=== PATIENT | male | born 1950 | race Caucasian/White ===

== ENCOUNTER → 2017-11-14 | Outpatient (CLI) | payer BC ==
[~2017-11-14] VITALS: Ht 180.3 cm; Wt 86.2 kg
[~2017-11-14] MED LIST: CATHETER FLUSH 10 ML SYR IV PRN; TEST5GEL6 TD
[2017-11-14 07:54] VITALS: BP 123/71
[2017-11-14 08:10] VITALS: BP 152/77
[2017-11-14 08:22] VITALS: BP 185/57
--- NOTE | 2017-11-14 14:17 | STRESS TEST ---
DATE OF SERVICE: 11/14/2017 NUCLEAR MYOVIEW REPORT REFERRING PHYSICIAN: Dr. Burk. In summary, the patient was injected with 10.63 mCi of technetium-99 Myoview and the resting images were obtained with peak stress level at 30.8 mCi of technetium-99 Myoview were injected and the stress images were obtained. The resting and stress images were compared and reviewed in the short axis, horizontal long axis, and vertical long axis views. Review of the images showed diaphragmatic attenuation with typical male pattern, mild decreased uptake at the inferior wall with no significant reversibility. SSS is 0. TID value of 0.99. On the gated images, the left ventricle appeared to be in normal size with normal contractility, calculated ejection fraction 67%. CONCLUSION: 1. No ischemia or infarction on SPECT images. 2. Normal left ventricular size with normal contractility. Calculated ejection fraction 67%. Job ID: [id number] DocumentID: [id number] Dictated Date: 11/14/2017 11:31:54 Grazing Examiner Date: 11/14/2017 14:16:49 Dictated By: JOSE CARUSO MD
== END ==
LOC: CARD 06:44
PROVIDERS: ATTEND Internal Medicine
DX: I25.10 Atherosclerotic heart disease of native coronary artery without angina pectoris (principal); I51.9 Heart disease, unspecified
CPT/HCPCS: 78452; 93017

== ENCOUNTER → 2020-07-02 | Outpatient (CLI) | payer MEDICARE ==
[~2020-07-02] MED LIST changes: -CATHETER FLUSH 10 ML SYR IV PRN; +GADOBUTROL 10 MMOL/10 ML (GADAVIST) VIAL IV ONE
--- NOTE | 2020-07-02 12:26 | Diagnostic Imaging Report ---
CLINICAL INDICATION: Patient with left-sided hearing loss and left tinnitus x2 months. EXAM: MRI of the brain/ IACs performed without and with 8 cc of Gadavist IV contrast. Sequences include sagittal T1 localizer, axial T2, axial flair, axial T1, coronal gradient echo, DWI, ADC map, axial T1 thin, axial T2 thin, coronal T1 thin, axial T2 3D FIESTA, axial T1 post contrast whole brain, coronal T1 fat-sat post IV contrast whole brain, and sagittal T1 post IV contrast whole brain. COMPARISONS: None. FINDINGS: TEMPORAL BONE STRUCTURES: Unremarkable. The internal auditory canal, otic capsule, middle ear, and temporal bone structures have normal anatomic appearance and are unremarkable. There is no abnormal fluid in the mastoid air cells seen. The visualized nerves VII and VIII within the IACs bilaterally and cisternal portions have normal appearance. CISTERNAL STRUCTURES: There is no cisternal mass seen. The remainder of the visualized cranial nerves in the basal cistern regions are unremarkable. BRAIN PARENCHYMA: There are multiple focal areas of high T2 signal white matter changes involving both cerebral hemispheres, likely representing chronic small vessel ischemic disease. There is brain parenchymal volume loss. There is normal diaz-white matter distention. There is no significant architectural distortion, midline shift, or herniation. There is no abnormal IV contrast enhancement or diffusion restriction signal changes. VENTRICLES: Unremarkable with no hydrocephalus. VISUALIZED INTRACRANIAL VESSELS: Unremarkable as visualized. SKULL/ ORBITS: Unremarkable. VISUALIZED PARANASAL SINUSES: There is minimal mucosal thickening involving ethmoid sinus. IMPRESSION: 1: Unremarkable MRI of the internal auditory canals, temporal bone structures, and basal cisterns. 2: Age related brain parenchymal changes. 3: There is mild paranasal sinus disease. Dictated by: Dictated on workstation # [id number]
== END ==
LOC: RAD 10:03
PROVIDERS: ATTEND Otolaryngology Otolaryngology/Facial Plastic Surgery
DX: H91.8X2 Other specified hearing loss, left ear (principal); H93.12 Tinnitus, left ear; G31.1 Senile degeneration of brain, not elsewhere classified; J34.89 Other specified disorders of nose and nasal sinuses
CPT/HCPCS: 70553

== ENCOUNTER → 2022-07-22 | Outpatient (CLI) | payer MEDICARE ==
[~2022-07-22] MED LIST changes: -GADOBUTROL 10 MMOL/10 ML (GADAVIST) VIAL IV ONE
== END ==
LOC: CARD 09:12
PROVIDERS: ATTEND Internal Medicine
DX: R00.2 Palpitations (principal)
CPT/HCPCS: 93246

== ENCOUNTER → 2022-08-05 | Outpatient (CLI) | payer MEDICARE ==
[~2022-08-05] MED LIST changes: +APIX5TAB PO; +DILT180C67 PO
== END ==
LOC: CARD 08:30
PROVIDERS: ATTEND Internal Medicine
DX: I48.92 Unspecified atrial flutter (principal)
CPT/HCPCS: 93306

== ENCOUNTER 2022-08-06 22:46 | Emergency (ER) | payer MEDICARE ==
[~2022-08-06] VITALS: Ht 180.3 cm; Wt 84.8 kg
[~2022-08-06 22:46] MED LIST changes: -APIX5TAB PO; -CATHETER FLUSH 10 ML SYR IVP PRN; -DILT180C67 PO
[2022-08-06 23:07] LABS: BASOPHILS # (AUTO) 0.1 10^3/uL (0.0-0.1); BASOPHILS % (AUTO) 1 % (0-10); EOSINOPHILS # (AUTO) 0.2 10^3/uL (0.0-0.3); EOSINOPHILS % (AUTO) 2 % (0-10); HEMATOCRIT 42 % (40-54); HEMOGLOBIN 14.6 g/dL (13.3-17.7); LYMPHOCYTES # (AUTO) 2.3 10^3/uL (1.0-4.0); LYMPHOCYTES % (AUTO) 34 % (12-44); MEAN CORPUSCULAR HEMOGLOBIN 32 pg (25-34); MEAN CORPUSCULAR HGB CONC 35 g/dL (32-36); MEAN CORPUSCULAR VOLUME 94 fL (80-99); MEAN PLATELET VOLUME 9.3 fL (9.0-12.2); MONOCYTES # (AUTO) 0.8 10^3/uL (0.0-1.0); MONOCYTES % (AUTO) 11 % (0-12); NEUTROPHILS # (AUTO) 3.4 10^3/uL (1.8-7.8); NEUTROPHILS % (AUTO) 52 % (42-75); PLATELET COUNT 262 10^3/uL (130-400); WHITE BLOOD COUNT 6.7 10^3/uL (4.3-11.0)
[2022-08-06 23:15] LABS: INR 0.9 (0.8-1.4); PROTHROMBIN TIME PATIENT 12.9 SEC (12.2-14.7)
[2022-08-06] MEDS ORDERED: dilTIAZem DRIP PRE-MIX 125 ML IV SCH (23:15)
[2022-08-06] MEDS ORDERED: ENOXAPARIN 100 MG/1 ML (LOVENOX) SYR SC ONE (23:15)
--- NOTE | 2022-08-06 23:23 | ED Cardiac General ---
History of Present Illness General Chief Complaint: Cardiac/General Problems Stated Complaint: ELEVATED, ERRATIC HEART RATE Nursing Triage Note: PT AMB TO RM 6 W C/O RAPID HR AND SOA SX APPROX [phone] THIS PM. PT A&OX4. Source: patient History of Present Illness Date Seen by Provider: Aug 06, 2022 Time Seen by Provider: 22:52 Initial Comments PT ARRIVES VIA POV FROM HOME C/O RAPID AND IRREGULAR HEART BEAT SINCE AROUND [phone] TONIGHT, AND HAS CONTINUED ALL EVENING HAS SOME SHORTNESS OF BREATH WITH IT NO CHEST PAIN NO SWEATS NO DIZZINESS OR SYNCOPE NO SWELLING IN LEGS/FEET OR PAIN IN CALVES NO NAUSEA/VOMITING HE TRIED TO CHECK HIS PULSE AT HOME, BUT IT WAS TOO WEAK AND TOO FAST TO COUNT. THIS IS THE 4TH TIME THIS HAS HAPPENED IN THE LAST MONTH, AND IT HAS NEVER LASTED THIS LONG. HE HAS NOT HAD THIS PROBLEM, PRIOR TO A MONTH AGO. HE HAS SEEN DR. STEPHENS AND HAD OUTPATIENT STRESS TEST DONE TODAY BY DR. STEPHENS. RESULTS ARE NOT AVAILABLE AT THIS TIME. HE HAD A [facility] EVENT MONITOR FROM 07/22-07/28/22--SHOWED 2 RUNS OF ATRIAL FIBRILLATION, WITH MAX BPM OF 171, WITH SOME UNIFOCAL PVC'S, RARE COUPLETS AND TRIPLETS. HIS ONLY MEDICAL PROBLEM IS HYPERLIPIDEMIA HE DOES NOT SMOKE HE DOES DRINK ALCOHOL ON A REGULAR BASIS--"EVERY OTHER DAY" DENIES DRUG USE Allergies and Home Medications Allergies Coded Allergies: No Known Drug Allergies (Unverified , 02/01/11) Patient Home Medication List Home Medication List Reviewed: Yes Apixaban (Eliquis) 5 Mg Tablet, 5 MG PO BID Prescribed by: GHASSAN ADAME on 08/07/2211 Diltiazem HCl (Cardizem Cd) 180 Mg Cap.er.24h, 180 MG PO DAILY Prescribed by: GHASSAN ADAME on 08/07/2211 Testosterone (Testim) 5 Gm Gel..gm., 1 PATCH TD DAILY, (Reported) Entered as Reported by: IBAN CEDILLO on 02/01/11 0252 Review of Systems Review of Systems Constitutional: no symptoms reported; No diaphoresis, No dizziness, No malaise, No weakness EENTM: No Symptoms Reported Respiratory: See HPI, Shortness of Air Cardiovascular: See HPI; Denies Chest Pain, Denies Edema; Irregular Heart Rate; Denies Lightheadedness; Palpitations; Denies Syncope Gastrointestinal: No Symptoms Reported; Denies Abdominal Pain, Denies Nausea, D enies Vomiting Genitourinary: No Symptoms Reported Musculoskeletal: no symptoms reported Skin: no symptoms reported Psychiatric/Neurological: No Symptoms Reported Endocrine: No Symptoms Reported Hematologic/Lymphatic: No Symptoms Reported Past Kcppqxo-Pxewpy-Gldvjp Hx Patient Social History Tobacco Use?: No Use of E-Cig and/or Vaping dev: No Substance use?: No Alcohol Use?: Yes ("EVERY OTHER DAY") Alcohol type: Beer, Hard Liquor Alcohol Frequency: Couple times a week Immunizations Up To Date Influenza Vaccine Up-to-Date: Yes; Up-to-Date First/Initial COVID19 Vaccinat: 2020 Second COVID19 Vaccination Arpit: 2020 Third COVID19 Vaccination Date: 2021 COVID19 Vaccine Broker: [id number] Past Medical History Surgeries: No Respiratory: No Cardiac: Yes High Cholesterol Neurological: No Genitourinary: No Gastrointestinal: No Musculoskeletal: No Endocrine: No HEENT: No Cancer: No Psychosocial: No Integumentary: No Blood Disorders: No Physical Exam Vital Signs Vital Signs - First Documented 08/06/22 22:50 Temp 36.5 Pulse 92 Resp 20 B/P (MAP) 168/99 (122) Pulse Ox 98 O2 Delivery Room Air Capillary Refill : Less Than 3 Seconds Height, Weight, BMI Height: 5'11.00" Weight: 190lbs. 0.0oz. 86.512469qm; 26.00 BMI Method:Stated General Appearance: No Apparent Distress, WD/WN Neck: Normal Inspection; No Carotid Bruit, No JVD Respiratory: Normal Breath Sounds, No Accessory Muscle Use, No Respiratory Distress Cardiovascular: No Edema, No JVD, No Murmur, Normal Peripheral Pulses, Irregularly Irregular Gastrointestinal: Non Tender, Soft Extremity: Normal Capillary Refill, Normal Inspection, Normal Range of Motion, Non Tender, No Calf Tenderness, No Pedal Edema Neurologic/Psychiatric: Alert, Oriented x3, No Motor/Sensory Deficits, Normal Mood/Affect, scrubber operator II-XII Norm as Tested Skin: Normal Color, Warm/Dry Progress/Results/Core Measures Results/Orders Lab Results Laboratory Tests Test 08/06/22 22:57 Range/Units White Blood Count 6.7 4.3-11.0 10^3/uL Red Blood Count 4.52 4.30-5.52 10^6/uL Hemoglobin 14.6 13.3-17.7 g/dL Hematocrit 42 40-54 % Mean Corpuscular Volume 94 80-99 fL Mean Corpuscular Hemoglobin 32 25-34 pg Mean Corpuscular Hemoglobin Concent 35 32-36 g/dL Red Cell Distribution Width 12.7 10.0-14.5 % Platelet Count 262 130-400 10^3/uL Mean Platelet Volume 9.3 9.0-12.2 fL Immature Granulocyte % (Auto) 0 % Neutrophils (%) (Auto) 52 42-75 % Lymphocytes (%) (Auto) 34 12-44 % Monocytes (%) (Auto) 11 0-12 % Eosinophils (%) (Auto) 2 0-10 % Basophils (%) (Auto) 1 0-10 % Neutrophils # (Auto) 3.4 1.8-7.8 10^3/uL Lymphocytes # (Auto) 2.3 1.0-4.0 10^3/uL Monocytes # (Auto) 0.8 0.0-1.0 10^3/uL Eosinophils # (Auto) 0.2 0.0-0.3 10^3/uL Basophils # (Auto) 0.1 0.0-0.1 10^3/uL Immature Granulocyte # (Auto) 0.0 0.0-0.1 10^3/uL Prothrombin Time 12.9 12.2-14.7 SEC INR Comment 0.9 0.8-1.4 Activated Partial Thromboplast Time 35 24-35 SEC Sodium Level 139 135-145 MMOL/L Potassium Level 3.6 3.6-5.0 MMOL/L Chloride Level 105 98-107 MMOL/L Carbon Dioxide Level 23 21-32 MMOL/L Anion Gap 11 5-14 MMOL/L Blood Urea Nitrogen 21 H 7-18 MG/DL Creatinine 1.21 0.60-1.30 MG/DL Estimat Glomerular Filtration Rate 64 BUN/Creatinine Ratio 17 Glucose Level 114 H 70-105 MG/DL Calcium Level 9.5 8.5-10.1 MG/DL Corrected Calcium 9.1 8.5-10.1 MG/DL Magnesium Level 2.3 1.6-2.4 MG/DL Total Bilirubin 0.4 0.1-1.0 MG/DL Aspartate Amino Transf (AST/SGOT) 25 5-34 U/L Alanine Aminotransferase (ALT/SGPT) 25 0-55 U/L Alkaline Phosphatase 48 40-136 U/L Total Creatine Kinase 165 30-200 U/L Creatine Kinase MB 2.5 <6.6 NG/ML Troponin I < 0.028 <0.028 NG/ML B-Type Natriuretic Peptide 19.7 <100.0 PG/ML Total Protein 8.0 6.4-8.2 GM/DL Albumin 4.5 3.2-4.5 GM/DL TSH Rooks Testing 3.72 0.35-4.94 UIU/ML My Orders Orders - GHASSAN ADAME DO Ed Iv/Invasive Line Start (08/06/22 22:51) Ekg Tracing (08/06/22 22:51) O2 (08/06/22 22:51) Monitor-Rhythm Ecg Trace Only (08/06/22 22:51) Bnp Tootie (08/06/22 22:51) Cbc With Automated Diff (08/06/22 22:51) Comprehensive Metabolic Panel (08/06/22 22:51) Creatine Kinase (08/06/22 22:51) Creatine Kinase Mb (08/06/22 22:51) Magnesium (08/06/22 22:51) Protime With Inr (08/06/22 22:51) Partial Thromboplastin Time (08/06/22 22:51) Thyroid Analyzer (08/06/22 22:51) Troponin I Tootie (08/06/22 22:51) Chest 1 View, Ap/Pa Only (08/06/22 22:51) Enoxaparin Injection (Lovenox Injection) (08/06/22 23:15) Diltiazem Injection (Cardizem Injection) (08/06/22 23:15) Diltiazem Drip Pre-Mix (Cardizem Drip Pr (08/06/22 23:15) Aspirin Chewable Tablet (Baby Aspirin Ch (08/06/22 23:30) Diltiazem Cd 24 Hr Capsule (Cardizem Cd (08/07/22 00:15) Medications Given in ED Current Medications Medications Dose Ordered Sig/Eh Route Start Time Stop Time Status Last Admin Dose Admin Aspirin 324 mg ONCE ONCE PO 08/06/22 23:30 08/06/22 23:31 DC 08/06/22 23:37 324 MG Diltiazem HCl 20 mg ONCE ONCE IVP 08/06/22 23:15 08/06/22 23:16 DC 08/06/22 23:26 10 MG Enoxaparin Sodium 90 mg ONCE ONCE SC 08/06/22 23:15 08/06/22 23:16 DC 08/06/22 23:21 90 MG Vital Signs/I&O 08/06/22 08/06/22 08/06/22 08/06/22 22:50 23:21 23:26 23:26 Temp 36.5 Pulse 92 98 81 81 Resp 20 B/P (MAP) 168/99 (122) 125/88 135/83 135/83 Pulse Ox 98 O2 Delivery Room Air 08/06/22 23:34 Pulse 72 B/P (MAP) 117/83 Blood Pressure Mean: 122 Progress Progress Note : Progress Note PT NOTED TO BE IN ATRIAL FIBRILLATION , WITH RATE IN UPPER 90'S BP IS 168/99 ON ARRIVAL. O2 SAT 98% ON ROOM AIR PT WAS GIVEN: -CARDIZEM BOLUS AND DRIP -ASPIRIN -LOVENOX HEART RATE DOWN TO 70'S, BP DOWN TO 110'S SYSTOLIC PT IS ASYMTOMATIC FOR REMAINDER OF ER STAY. REVIEWED RECENT OUTPATIENT TESTS PT HAS NOT HAD ANY PRIOR ADMITS, AND ONLY 1 ER VISIT IN 2010 FOR UNRELATED PROBLEM. DISCUSSED TEST RESULTS, AND POSSIBLE NEED FOR ADMIT. PT WOULD LIKE TO GO HOME IF POSSIBLE. PT DOES LIVE ALONE. AFTER CONSULTING DR. BILLY, HE IS AGREEABLE WITH PT GOING HOME ON ORAL MEDICATION, AND REVIEWED ALL THIS WITH PT, AND HE FEELS COMFORTABLE GOING HOME. DISCUSSED IMPORTANCE OF FOLLOW UP, DRIVING RESTRICTIONS, MEDICATIONS, AND RETURN PRECAUTIONS. Initial ECG Impression Date: Aug 06, 2022 Initial ECG Impression Time: 23:00 Initial ECG Rate: 95 Initial ECG Rhythm: A Fib/Flutter Initial ECG Impression: Nonspecific Changes, Atrial Fibrillation Initial ECG Comparisson: No Previous ECG Available Comment INTERPRETED BY ME Diagnostic Imaging Comments CXR--NO ACUTE PROCESS, PENDING RADIOLOGIST REVIEW Reviewed: Reviewed by Me Departure Communication (Admissions) 0723--SPOKE WITH DR. BILLY, PHOTOGRAPH TINTER. HE STATES THAT PT MAY GO HOME, WILL START HIM ON ELIQUIS AND CARDIZEM, AND HE WILL SEE PT IN OFFICE ON TUESDAY. Impression Primary Impression: New onset atrial fibrillation Additional Impression: Atrial fibrillation with RVR Disposition: HOME, SELF-CARE Condition: Stable Departure-Patient Inst. Decision time for Depature: 00:08 Referrals: AYAAN BILLY MD FACP [facility] HARDY STEPHENS DO (PCP/Family) Primary Care Physician Patient Instructions: Atrial Fibrillation (DC), Going Home on Blood Thinners Add. Discharge Instructions: HOME, REST NO CAFFEINE OR ENERGY DRINKS NO ALCOHOL DO NOT DRIVE IF YOU ARE HAVING ANY SYMPTOMS OF IRREGULAR HEART BEAT, SHORT OF BREATH, DIZZY, CHEST PAIN, ETC. FOLLOW UP WITH DR. BILLY, PHOTOGRAPH TINTER, ON TUESDAY RETURN TO ER IF YOUR SYMPTOMS WORSEN. All discharge instructions reviewed with patient and/or family. Voiced understanding. Scripts Diltiazem HCl (Cardizem Cd) 180 Mg Cap.er.24h 180 MG PO DAILY, #30 CAP Prov: GHASSAN ADAME DO 08/07/22 Apixaban (Eliquis) 5 Mg Tablet 5 MG PO BID, #60 TAB Prov: GHASSAN ADAME DO 08/07/22 GHASSAN ADAME DO Aug 06, 2022 23:23
[2022-08-06 23:25] LABS: ALANINE AMINOTRANSFERASE 25 U/L (0-55); ALBUMIN 4.5 GM/DL (3.2-4.5); ALKALINE PHOSPHATASE 48 U/L (40-136); BILIRUBIN,TOTAL 0.4 MG/DL (0.1-1.0); BUN/CREATININE RATIO 17; CALCIUM 9.5 MG/DL (8.5-10.1); CARBON DIOXIDE 23 MMOL/L (21-32); CHLORIDE 105 MMOL/L (98-107); CREATINE KINASE 165 U/L (30-200); CREATININE SERUM 1.21 MG/DL (0.60-1.30); GFR ESTIMATED 64; GLUCOSE 114 MG/DL (70-105); MAGNESIUM 2.3 MG/DL (1.6-2.4); POTASSIUM 3.6 MMOL/L (3.6-5.0); SODIUM 139 MMOL/L (135-145)
[2022-08-06] MEDS ORDERED: ASPIRIN 81 MG CHEW (CHILDREN'S ASA) PO ONE (23:30)
[2022-08-06 23:45] LABS: CREATINE KINASE MB 2.5 NG/ML (<6.6); TSH (THYROID ANALYZER) 3.72 UIU/ML (0.35-4.94)
[2022-08-07] MEDS ORDERED: DILT180C67 PO (00:12)
[2022-08-07] MEDS ORDERED: APIX5TAB PO (00:12)
[2022-08-07 00:20] VITALS: BP 104/78
--- NOTE | 2022-08-07 08:00 | Diagnostic Imaging Report ---
INDICATION: Palpitations. EXAMINATION: Frontal chest obtained at 11:08 PM. FINDINGS: The heart and mediastinal silhouette are normal in appearance. The lungs are clear. There is no pneumothorax or pleural fluid. IMPRESSION: Negative chest. Dictated by: Dictated on workstation # [id number]
== END 2022-08-07 00:20 | disposition home or self-care (01) ==
LOC: EDUNIT# 22:46 → ER 22:48
DX: I48.91 Unspecified atrial fibrillation (principal)
CPT/HCPCS: 36415; 71045; 80053; 82550; 82553; 83735; 83880; 84443; 84484; 85025; 85610; 85730; 93005; 93041

== ENCOUNTER → 2022-08-06 | Outpatient (CLI) | payer MEDICARE ==
[~2022-08-06] MED LIST changes: +CATHETER FLUSH 10 ML SYR IVP PRN
[2022-08-06 08:02] VITALS: BP 144/80
--- NOTE | 2022-08-07 11:52 | STRESS TEST ---
DATE OF SERVICE: 08/06/2022 RESTING AND POST EXERCISE TECHNETIUM-99M TETROFOSMIN SPECT CT IMAGING CLINICAL DIAGNOSIS: Atrial fibrillation. ORDERING PHYSICIAN: Dr. Burk. PRIMARY PHYSICIAN: Dr. Burk. Baseline images were carried out after injection of 10.56 mCi of technetium-99m Tetrofosmin. This was followed by exercise on treadmill that was carried out under Dr. Burk's supervision and is reported separately by him. The patient received 30.7 mCi of technetium-99m tetrofosmin at peak exercise. The exercise was continued for another minute. Review of images at rest and following stress indicates a small basal inferior perfusion defect that appears to be transient. Gated images show normal global left ventricular systolic function with normal regional wall motion. Left ventricular ejection fraction is calculated to be 70%. CONCLUSIONS: 1. This study is suggestive of a small amount of basal inferior ischemia. 2. Normal regional wall motion. 3. Normal global left ventricular systolic function with a calculated ejection fraction of 70%. Job ID: [id number] DocumentID: [id number] Dictated Date: 08/07/2022 07:51:15 Grill Cook Date: 08/07/2022 11:50:00 Dictated By: AYAAN BILLY MD; BILL; FACP; FACC;
== END ==
LOC: CARD 07:00
PROVIDERS: ATTEND Internal Medicine
DX: I48.92 Unspecified atrial flutter (principal); I48.91 Unspecified atrial fibrillation
CPT/HCPCS: 78452; 93017; A9502

== ENCOUNTER 2022-08-17 00:01 | Emergency (ER) | payer MEDICARE ==
[~2022-08-17] VITALS: Ht 180 cm; Wt 83.0 kg
[~2022-08-17 00:01] MED LIST changes: +APIX5TAB PO; +DILT180C67 PO
--- NOTE | 2022-08-17 01:04 | ED Cardiac General ---
History of Present Illness General Chief Complaint: Cardiac/General Problems Stated Complaint: AFIB Nursing Triage Note: pt presents to ED with c/o palpitations and "feeling winded" x 5hours. pt has recent diagnosis of afib and was started on eliquis. Source: patient Exam Limitations: no limitations History of Present Illness Date Seen by Provider: Aug 17, 2022 Time Seen by Provider: 00:31 Initial Comments This 72 year old gentleman presents to the ER with complaint of feeling erratic palpitations and SOA while driving home from an oncology appointment at [facility] for a cancer check-up. He was recently diagnosed with a-fib. He is on Cardizem and Eliquis. Symptoms tonight started about 1800. He feels better now. Allergies and Home Medications Allergies Coded Allergies: No Known Drug Allergies (Unverified , 02/01/11) Patient Home Medication List Home Medication List Reviewed: Yes Apixaban (Eliquis) 5 Mg Tablet, 5 MG PO BID Prescribed by: GHASSAN ADAME on 08/07/22 001 Diltiazem HCl (Cardizem Cd) 180 Mg Cap.er.24h, 180 MG PO DAILY Prescribed by: GHASSAN ADAME on 08/07/22 001 Diltiazem HCl (Diltiazem 12Hr ER) 60 Mg Cap.er.12h, 60 MG PO UD Prescribed by: TOBIAS ROBERTSON on 08/17/22 0106 Testosterone (Testim) 5 Gm Gel..gm., 1 PATCH TD DAILY, (Reported) Entered as Reported by: IBAN CEDILLO on 02/01/11 0252 Review of Systems Review of Systems Constitutional: no symptoms reported EENTM: No Symptoms Reported Respiratory: No Symptoms Reported, See HPI Cardiovascular: See HPI Gastrointestinal: No Symptoms Reported Genitourinary: No Symptoms Reported Musculoskeletal: no symptoms reported Skin: no symptoms reported Psychiatric/Neurological: No Symptoms Reported Endocrine: No Symptoms Reported Hematologic/Lymphatic: No Symptoms Reported Past Dugdpwr-Nipksc-Ubqkso Hx Patient Social History Tobacco Use?: No Substance use?: No Alcohol Use?: Yes Alcohol Frequency: Once in a while Immunizations Up To Date Influenza Vaccine Up-to-Date: Yes; Up-to-Date First/Initial COVID19 Vaccinat: 2020 Second COVID19 Vaccination Arpit: 2020 Third COVID19 Vaccination Date: 2021 Past Medical History Surgeries: No Respiratory: No Cardiac: Yes Atrial Fibrillation, High Cholesterol Neurological: No Genitourinary: No Gastrointestinal: No Musculoskeletal: No Endocrine: No HEENT: No Cancer: No Psychosocial: No Integumentary: No Blood Disorders: No Physical Exam Vital Signs Vital Signs - First Documented 08/17/22 00:09 Temp 35.6 Pulse 95 Resp 18 B/P (MAP) 144/88 (106) Pulse Ox 98 O2 Delivery Room Air Capillary Refill : Less Than 3 Seconds Height, Weight, BMI Height: 5'11.00" Weight: 190lbs. 0.0oz. 86.836124ch; 25.00 BMI Method:Stated General Appearance: No Apparent Distress, WD/WN HEENT: PERRL/EOMI, Normal ENT Inspection Neck: Normal Inspection Respiratory: Lungs Clear, Normal Breath Sounds, No Accessory Muscle Use Cardiovascular: No Edema, No Murmur, Irregularly Irregular (rate controlled) Extremity: Normal Inspection, No Pedal Edema Neurologic/Psychiatric: Alert, Oriented x3, No Motor/Sensory Deficits, Normal Mood/Affect Skin: Normal Color, Warm/Dry Progress/Results/Core Measures Results/Orders My Orders Orders - TOBIAS JONES MD Ekg Tracing (08/17/22 00:13) Vital Signs/I&O 08/17/22 08/17/22 00:09 01:14 Temp 35.6 35.6 Pulse 95 85 Resp 18 16 B/P (MAP) 144/88 (106) 128/105 Pulse Ox 98 97 O2 Delivery Room Air Room Air Blood Pressure Mean: 106 Progress Progress Note : Progress Note Patient is in rate controlled A-fib. I suspect he either had a run of RVR or was alternating between A-fib and sinus rhythm when he had symptoms. I recommended increasing the Cardizem dose as needed if he develops frequent RVR. He has follow-up with week during which he can discuss these issues. An Rx for additional Cardizem was provided. Initial ECG Impression Date: Aug 17, 2022 Initial ECG Impression Time: 00:13 Initial ECG Rate: 74 Initial ECG Rhythm: A Fib/Flutter Initial ECG Impression: Atrial Fibrillation Comment Atrial fibrillation with no ST elevation or depression. No abnormal intervals or axis deviation. Rate controlled. Departure Impression Primary Impression: Paroxysmal atrial fibrillation Disposition: 01 HOME, SELF-CARE Condition: Improved Departure-Patient Inst. Decision time for Depature: 00:59 Referrals: HARDY STEPHENS DO (PCP/Family) Primary Care Physician Patient Instructions: Atrial Fibrillation Add. Discharge Instructions: You are likely experiencing fluctuating heart rates with your atrial fibrillation or intermittent conversion back and forth from atrial fibrillation to sinus rhythm. These episodes may be noticeable and cause some discomfort, or at least awareness of your heart rhythm by experiencing palpitations. If you notice frequent episodes of tachycardia (rapid heart rate) or more consistent baseline heart rate at rest of 90 bpm or higher, add the diltiazem 12 hr ER 60 mg capsule twice daily to your present dose. This may be used at the time of an event of more extreme tachycardia or may be done on a consistent basis if you are having frequent events. Contact Dr. Patton's office is soon as possible and arrange follow-up to discuss further. If you are having significant worsening of symptoms that include lightheadedness, shortness of breath, chest pain, etc., return to care. All discharge instructions reviewed with patient and/or family. Voiced understanding. Scripts Diltiazem HCl (Diltiazem 12Hr ER) 60 Mg Cap.er.12h 60 MG PO UD, #30 CAP Use every 12 hours as needed for persistant tachycardia over 90 bpm or episodes of more extreme tachycardia in addition to regular 180 mg daily dose. Prov: TOBIAS JONES MD 08/17/22 Copy Copies To 1: AYAAN PATTON MD [facility] CCDS Copies To 2: HARDY STEPHENS JOSHUA T MD Aug 17, 2022 01:04
[2022-08-17] MEDS ORDERED: DILT60CA PO (01:06)
[2022-08-17 01:14] VITALS: BP 128/105
== END 2022-08-17 01:14 | disposition home or self-care (01) ==
LOC: EDUNIT# 00:01 → ER 00:03
DX: I48.0 Paroxysmal atrial fibrillation (principal); Z79.01 Long term (current) use of anticoagulants
CPT/HCPCS: 93005

== ENCOUNTER → 2023-04-05 | Outpatient (CLI) | payer MEDICARE ==
[~2023-04-05] MED LIST changes: +ACHD5005 PO; +CEPH500T PO; +DILT60CA PO; +ONDA4TAB11 SL; +TMSL.4C PO
--- NOTE | 2023-04-05 11:33 | Diagnostic Imaging Report ---
INDICATION: CT with recent demonstration high degree of left-sided obstructive uropathy as well as a left renal mass. TECHNIQUE: Multiple real-time grayscale sonographic images were obtained of the left kidney. CORRELATION: CT abdomen pelvis 03/27/2023 FINDINGS: LEFT KIDNEY: 11.6 x 5.8 x 6.2 cm. Small partially exophytic hypoechoic mass superior pole left kidney favors cyst 1.4 x 1.2 x 1.1 cm and corresponds to recent CT findings. Dilated left renal pelvis and ureter. Overall appearing slightly less severe from prior. URINARY BLADDER: Question small amount of debris in the urinary bladder. Bilateral ureteral jets are visualized. IMPRESSION: 1. Small exophytic mass left kidney favors a cyst. 2. Mild dilatation left renal pelvis and ureter. Overall appears less severe from prior. 3. Question small amount of debris in the urinary bladder. Correlation for potential urinary tract infection. Dictated by: Dictated on workstation # [id number]
--- NOTE | 2023-04-05 14:54 | Diagnostic Imaging Report ---
Indication: Coronary artery disease. CT coronary calcium study performed with noncontrast images of the heart followed by calculation of cardiac calcium score. Dose reduction protocol was used There are multiple focal calcifications throughout the coronary arteries, with score of 117 for left main, 385 for LAD, 219 for circumflex coronary artery, and 229 for right coronary artery. Raw data images demonstrate no mediastinal or hilar adenopathy. There is no pleural or pericardial fluid. Visualized portions of the lung aguilar show some scarring in the lingula. The entirety lungs are not included on the study. IMPRESSION: Coronary calcium score of 950 is compatible with extensive plaque burden throughout all the coronary territories. Recommend further evaluation as clinically warranted. Dictated by: Dictated on workstation # [id number]
== END ==
LOC: RAD 07:45
PROVIDERS: ATTEND Internal Medicine
DX: Z13.6 Encounter for screening for cardiovascular disorders (principal); N28.1 Cyst of kidney, acquired; N28.82 Megaloureter
CPT/HCPCS: 75571; 76775